=== PATIENT | male | born 1960 | race Caucasian/White ===

== ENCOUNTER 2018-07-21 12:43 | Emergency (ER) | payer MEDICAID, OTHER ==
[~2018-07-21] VITALS: Ht 172.7 cm; Wt 77.3 kg
[2018-07-21 12:55] VITALS: BP 152/88
== END 2018-07-21 13:48 | disposition home or self-care (01) ==
LOC: ER 12:47
DX: I10 Essential (primary) hypertension (principal); J45.909 Unspecified asthma, uncomplicated; M19.90 Unspecified osteoarthritis, unspecified site; Z76.0 Encounter for issue of repeat prescription

== ENCOUNTER 2018-08-31 04:44 | Emergency (ER) | payer MEDICAID ==
[~2018-08-31] VITALS: Ht 172.7 cm; Wt 77.1 kg
[2018-08-31] MEDS ORDERED: ALBUTEROL SULF 2.5 MG/0.5ML(0.5%) NEB SOLN NEB ONE (07:00)
[2018-08-31] MEDS ORDERED: IPRATROPIUM BROM 0.5 MG/2.5ML INH SOL NEB ONE (07:00)
[2018-08-31] MEDS ORDERED: methylPREDNISolone SOD SUCC 125 MG/2 ML VL IM ONE (07:00)
[2018-08-31] MEDS ORDERED: IBUPROFEN 800 MG TAB PO ONE (07:15)
[2018-08-31 07:26] VITALS: BP 167/109
== END 2018-08-31 07:59 | disposition home or self-care (01) ==
LOC: ER 04:44
DX: J45.909 Unspecified asthma, uncomplicated (principal); Z76.0 Encounter for issue of repeat prescription; I10 Essential (primary) hypertension
CPT/HCPCS: 71045; 94640; 96372; 99283; J2930; J7611; J7644